=== PATIENT | female | born 1940 | race Hispanic/Latino ===

== ENCOUNTER 2021-02-11 05:43 | Observation (INO) | payer MEDICARE ==
[2021-02-06 12:46] LABS: BASOPHILS % 0.2 % (0.0-1.0); EOSINOPHILS # (AUTO) 0.2 (0.0-0.4); EOSINOPHILS % 3.4 % (0.0-6.0); HEMATOCRIT 38.4 % (34.2-44.1); HEMOGLOBIN 12.4 g/dL (12.0-16.0); LYMPHOCYTES # (AUTO) 1.5 (1.0-3.2); LYMPHOCYTES % 28.8 % (18.0-39.1); MEAN CORPUSCULAR HEMOGLOBIN 31.7 pg (28-32); MEAN CORPUSCULAR HGB CONC 32.3 g/dL (31-35); MEAN CORPUSCULAR VOLUME 98.2 fL (81-99); MONOCYTES # (AUTO) 0.4 (0.2-0.8); MONOCYTES % 6.6 % (4.4-11.3); NEUTROPHILS # (AUTO) 3.2 (2.1-6.9); NEUTROPHILS % 60.8 % (38.7-80.0); PLATELET COUNT 218 x10e3/uL (140-360); RED BLOOD COUNT 3.91 x10e6/uL (3.6-5.1); RED CELL DISTRIBUTION WIDTH 12.2 % (11.7-14.4)
[2021-02-06 13:03] LABS: ALANINE AMINOTRANSFERASE 11 IU/L (0-55); ALBUMIN 3.8 g/dL (3.5-5.0); ALBUMIN/GLOBULIN RATIO 1.3 (0.8-2.0); ALKALINE PHOSPHATASE 76 IU/L (40-150); ANION GAP 16.7 mmol/L (8-16); BLOOD UREA NITROGEN 13 mg/dL (7-26); BUN/CREATININE RATIO 18 (6-25); CALCIUM 9.6 mg/dL (8.4-10.2); CARBON DIOXIDE 26 mmol/L (22-29); CHLORIDE 108 mmol/L (98-107); CREATININE, SERUM 0.73 mg/dL (0.57-1.11); EST GLOMERULAR FILTRATION RATE > 60 ML/MIN (60-); GLUCOSE 104 mg/dL (74-118); POTASSIUM 4.7 mmol/L (3.5-5.1); SODIUM 146 mmol/L (136-145)
[~2021-02-11 05:43] MED LIST: FAMOTIDINE20 MG PO; FUROSEMIDE40 MG PO; LIPITOR10 MG PO; METFORMIN HCL500 MG PO; METOPROLOL SUCC50 MG PO; TYLENOL325 M2 PO
[2021-02-11] MEDS ORDERED: CEFAZOLIN SOD 1 GM/NS 50ML 100 ML IV ONE (05:56)
[2021-02-11] MEDS ORDERED: ESTROGENS CONJUGATED VAGINAL CR 45 GM TUBE PV ONE (07:21)
[2021-02-11] MEDS ORDERED: BUPIVACAINE 0.25% 30ML SDV ONE (07:21)
[2021-02-11] MEDS ORDERED: INDIGOTINDISULFONATE SODIUM 8 MG/ML AMP IJ ONE (07:34)
[2021-02-11] MEDS ORDERED: BUPIVACAINE 0.5%/EPI 30 ML SDV INJ ONE (07:34)
[2021-02-11] MEDS ORDERED: DEXTROSE 50% SYRINGE 50 ML IV PRN (08:00)
[2021-02-11] MEDS ORDERED: DOCUSATE SODIUM 100 MG CAP PO PRN (08:00)
[2021-02-11] MEDS ORDERED: HYDROCODONE/APAP 5MG-325MG TAB PO PRN (08:00)
[2021-02-11] MEDS ORDERED: MEPERIDINE HCL INJ 25 MG/ML VIAL IV PRN (08:00)
[2021-02-11] MEDS ORDERED: DIPHENHYDRAMINE HCL 25 MG CAP PO PRN (08:00)
[2021-02-11] MEDS ORDERED: INSULIN REGULAR, HUMAN 100 UNIT/1 ML 3ML VIAL SQ SCH (11:30)
[2021-02-11 13:02] VITALS: BP 153/58
[2021-02-11 13:04] VITALS: BP 153/58
[2021-02-11] MEDS ORDERED: LIDOCAINE HCL 2% LOCAL INJ 5 ML SDV VIAL INJ ONE (13:47)
[2021-02-11] MEDS ORDERED: GLYCOPYRROLATE INJ 0.2 MG/ML VIAL ONE (13:47)
[2021-02-11] MEDS ORDERED: POVIDONE IODINE 0.05% 0.05 % ML PO ONE (13:47)
[2021-02-11] MEDS ORDERED: DEXAMETHASONE SOD PHOS INJ 4 MG/ML VIAL ONE (13:47)
[2021-02-11] MEDS ORDERED: PROPOFOL IV EMULSION 10 MG/ML 20 ML VIAL ONE (13:47)
[2021-02-11] MEDS ORDERED: ONDANSETRON HCL INJ 2MG/ML 2ML 2 MG/ML VIAL ONE (13:47)
[2021-02-11] MEDS ORDERED: SEVOFLURANE INHAL SOLN 250 ML PEN BTL ONE (13:47)
[2021-02-11] MEDS ORDERED: NEOSTIGMINE 1 MG/ML 10ML VIAL ONE (13:47)
[2021-02-11] MEDS ORDERED: ROCURONIUM BROMIDE 10 MG/ML 5ML VIAL IV ONE (13:47)
[2021-02-11] MEDS ORDERED: KETOROLAC TROMETHAMINE 30 MG/ML VIAL ONE (13:47)
[2021-02-11] MEDS: LACTATED RINGER'S 1,000 ML IV SCH ×3 (13:52→23:15)
[2021-02-11] MEDS ORDERED: AMPICILLIN SOD/SULBACTAM 1.5GM 50 ML IV SCH ×2 (14:00→15:00)
[2021-02-11] MEDS ORDERED: FENTANYL CITRATE/PF 100MCG/2 ML INJ ONE (14:07)
[2021-02-11 14:27] VITALS: BP 153/58
[2021-02-11] MEDS: ACETAMINOPHEN 325 MG TAB PO PRN ×2 (15:08→23:20)
[2021-02-11] MEDS: INSULIN REGULAR, HUMAN 100 UNIT/1 ML 3ML VIAL SQ SCH ×2 (16:30→21:00)
[2021-02-11] MEDS: AMPICILLIN SOD/SULBACTAM 1.5GM 50 ML IV SCH (18:30)
[2021-02-11] MEDS ORDERED: ASPIRIN81 MG PO (18:42)
[2021-02-11] MEDS ORDERED: LACTULOSE20 GM/30 M PO (18:42)
[2021-02-11 20:00] VITALS: BP 122/57
[2021-02-12] VITALS: BP 99/38
[2021-02-12] MEDS: AMPICILLIN SOD/SULBACTAM 1.5GM 50 ML IV SCH ×2 (01:08→09:38)
[2021-02-12] MEDS ORDERED: SODIUM CHLORIDE 0.9% 100 ML ONE (01:24)
[2021-02-12 04:00] VITALS: BP 106/58
[2021-02-12 06:17] LABS: BASOPHILS % 0.2 % (0.0-1.0); EOSINOPHILS % 0.2 % (0.0-6.0); HEMATOCRIT 31.8 % (34.2-44.1); HEMOGLOBIN 10.2 g/dL (12.0-16.0); LYMPHOCYTES # (AUTO) 1.7 (1.0-3.2); LYMPHOCYTES % 20.7 % (18.0-39.1); MEAN CORPUSCULAR HEMOGLOBIN 31.6 pg (28-32); MEAN CORPUSCULAR HGB CONC 32.1 g/dL (31-35); MEAN CORPUSCULAR VOLUME 98.5 fL (81-99); MONOCYTES # (AUTO) 0.7 (0.2-0.8); MONOCYTES % 7.8 % (4.4-11.3); NEUTROPHILS # (AUTO) 5.9 (2.1-6.9); NEUTROPHILS % 70.7 % (38.7-80.0); PLATELET COUNT 180 x10e3/uL (140-360); RED BLOOD COUNT 3.23 x10e6/uL (3.6-5.1); RED CELL DISTRIBUTION WIDTH 12.5 % (11.7-14.4)
[2021-02-12] MEDS: INSULIN REGULAR, HUMAN 100 UNIT/1 ML 3ML VIAL SQ SCH ×3 (07:30→16:30)
[2021-02-12 07:41] VITALS: BP 114/47
[2021-02-12] MEDS: LACTATED RINGER'S 1,000 ML IV SCH ×2 (09:37→16:00)
[2021-02-12] MEDS: ACETAMINOPHEN 325 MG TAB PO PRN (09:38)
[2021-02-12 10:49] VITALS: BP 114/47
[2021-02-12 11:42] VITALS: BP 125/48
[2021-02-12 15:23] VITALS: BP 141/54
== END 2021-02-12 18:09 | disposition home or self-care (01) ==
LOC: OR 05:43 → PACU V 07:47 → MED/SURG 12:03
PROVIDERS: ADMIT Obstetrics & Gynecology; ATTEND Obstetrics & Gynecology
DX: N81.89 Other female genital prolapse (principal); N39.3 Stress incontinence (female) (male); Z20.822 Contact with and (suspected) exposure to COVID-19; Z01.818 Encounter for other preprocedural examination; I10 Essential (primary) hypertension
CPT/HCPCS: 36415 ×3; 57282; 57288; 71046; 80053; 82948 ×2; 85025 ×2; 93005; C1758; C1781; G0378 ×2; J0295; J0690; J1100; J1817; J1885; J2001; J2405; J2704; J2710; J3010; J7050; J7121 ×2; U0002

== ENCOUNTER → 2023-09-15 | Outpatient (REF) | payer MEDICARE ==
[~2023-09-15] MED LIST changes: +ASPIRIN81 MG PO; +IOPAMIDOL 370 MG/ML 100 ML INFUS..BTL INJ ONE; +LACTULOSE20 GM/30 M PO
[2023-09-15 14:34] LABS: CREATININE, SERUM 0.71 mg/dL (0.57-1.11)
== END ==
LOC: CT 13:38
PROVIDERS: ATTEND Urology
DX: N82.0 Vesicovaginal fistula (principal)
CPT/HCPCS: 36415; 74177; 82565; 84520; Q9967

== ENCOUNTER → 2025-02-27 | Outpatient (REF) | payer MEDICARE ==
[~2025-02-27] MED LIST changes: +DIATRIZOATE MEGL/DIATRIZOA SOD 30 ML BTL PO ONE; -IOPAMIDOL 370 MG/ML 100 ML INFUS..BTL INJ ONE
== END ==
LOC: DX 08:51
PROVIDERS: ATTEND Urology
DX: N81.6 Rectocele (principal); K59.04 Chronic idiopathic constipation
CPT/HCPCS: 74270; Q9963